=== PATIENT | female | born 1990 ===

== ENCOUNTER 2016-09-14 10:55 | Emergency (ER) | payer SELFPAY ==
[2016-09-14 10:58] VITALS: BMI 31.6
[2016-09-14 11:01] VITALS: RESP 18
[2016-09-14 11:47] LABS: RBC URINE 1 /hpf (0-3); URINE BILIRUBIN NEGATIVE (NEGATIVE); URINE BLOOD NEGATIVE (NEGATIVE); URINE COLOR Yellow (YELLOW); URINE GLUCOSE (UA) NORMAL (Normal); URINE KETONE NEGATIVE (NEGATIVE); URINE LEUKOCYTE ESTERASE 2+ Leu/uL (Negative); URINE PROTEIN NEGATIVE (NEGATIVE); URINE UROBILINOGEN NORMAL mg/dL (0.2-1.0)
[2016-09-14 11:57] LABS: WBC URINE 3 /hpf (0-5)
--- NOTE | 2016-09-14 12:06 | C.PDOC ---
History Of Present Illness 26 yo female w/PMHx of asthma come in for evaluation of intermittent frontal headache associated with nasal congestion, " seasonal allergy". 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 Otherwise, pt denies high fever, chills, severe headache, dizziness, N/V, visual changes, focal deficits, neck pain, rash, drooling, dysphagia, dyspnea, CP, SOB, diaphoresis, wheezing, abd. pain, N/V/D, UTI sx. Denies hx of anemia or heavy vaginal bleeding. Ambulate to ED for evaluation, not in any apparent distress. Time Seen by Provider: 09/14/16 11:01 Chief Complaint (Nursing): Headache History Per: Patient History/Exam Limitations: no limitations Onset/Duration Of Symptoms: Intermittent Episodes Current Symptoms Are (Timing): Still Present Past Medical History Reviewed: Historical Data, Nursing Documentation, Vital Signs Vital Signs: Last Vital Signs Temp 98.9 F 09/14/16 11:00 Pulse 75 09/14/16 11:00 Resp 18 09/14/16 11:00 BP 96/63 L 09/14/16 11:00 Pulse Ox 98 09/14/16 12:14 - Medical History PMH: Asthma Surgical History: Tonsillectomy - [facility] Procedures INSERT GASTRIC TUBE NEC (10/11/13) Family History: States: No Known Family Hx - Social History Hx Tobacco Use: No Hx Alcohol Use: No Hx Substance Use: No - Immunization History Hx Tetanus Toxoid Vaccination: No Hx Influenza Vaccination: No Hx Pneumococcal Vaccination: No Review Of Systems Except As Marked, All Systems Reviewed And Found Negative. Constitutional: Negative for: Fever, Chills Eyes: Negative for: Vision Change Cardiovascular: Negative for: Chest Pain Respiratory: Negative for: Shortness of Breath, Wheezing Gastrointestinal: Negative for: Nausea, Vomiting, Abdominal Pain, Diarrhea Musculoskeletal: Negative for: Neck Pain Skin: Negative for: Rash Neurological: Positive for: Headache (Frontal headache). Negative for: Dizziness Physical Exam - Physical Exam Appears: Well, Non-toxic, No Acute Distress Skin: Normal Color, Warm, Dry, No Rash Head: Atraumatic, Normacephalic Eye(s): bilateral: Normal Inspection, PERRL, EOMI Ear(s): Bilateral: Normal Nose: Discharge (B/L nasal congestion), Other (mild parafrontal sinuses tenderness, no edema, no erythema.) Oral Mucosa: Moist, No Drooling, No Trismus Tongue: Normal Appearing Lips: Normal Appearing Throat: Normal, No Erythema, No Exudate, No Drooling Neck: Normal, Normal ROM, Supple Cardiovascular: Rhythm Regular Respiratory: Normal Breath Sounds, No Stridor, No Wheezing Gastrointestinal/Abdominal: Normal Exam, Soft, No Tenderness Back: Normal Inspection Extremity: Normal ROM, No Pedal Edema Neurological/Psych: Oriented x3, Normal Speech ED Course And Treatment O2 Sat by Pulse Oximetry: 98 Pulse Ox Interpretation: Normal Progress Note: On re-evaluation, pt is afebrile, hemodynamicaly stable. Non- toxic. Tolerate PO well in ED. PulseOx 98% RA. ENT: exam c/w mild frontal sinusitis. NO edema, no erythema. Eyes: normal exam. Neck: (-) meningeal sign. Lungs: CTA B/L, BS equal B/L. ABd: benign. Neurologicaly intact. Pt advised and ref. to F/u with PMD, Neuro and ENT in 2-3 days for re-eavl. return if any new changes. Medical Decision Making Medical Decision Making: PLAN: * HCG Urine * Urinalysis * Benadryl PO * Prednisone PO Disposition Counseled Patient/Family Regarding: Studies Performed, Diagnosis, Need For Followup, Rx Given - Disposition Referrals: Clinic,Med Surg [Primary Care Provider] - [facility] [Outside] Al Christiansen MD [Staff Provider] - Disposition Time: 11:55 Condition: STABLE Additional Instructions: Encourage fluids Consider B12 vitamins supplement Take medication as prescribed Follow up with PMD, ENT and Neurology in 2-3 days for re-evaluation. Return to ED if any worsening or new changes. Prescriptions: Amoxicillin/Clavulanate [Augmentin 875 MG-125 MG] 1 tab PO BID #14 tab Loratadine [Claritin] 10 mg PO DAILY #20 tab Prednisone [Deltasone] 20 mg PO DAILY #3 tablet Instructions: Rhinosinusitis (ED) Forms: Work Excuse - Clinical Impression Clinical Impression: Sinusitis - PA / [employer] / Resident Statement MD/DO has reviewed & agrees with the documentation as recorded. - Scribe Statement The provider has reviewed the documentation as recorded by the Darielaibmame Arboleda All medical record entries made by the Scribe were at my direction and personally dictated by me. I have reviewed the chart and agree that the record accurately reflects my personal performance of the history, physical exam, medical decision making, and the department course for this patient. I have also personally directed, reviewed, and agree with the discharge instructions and disposition.
[2016-09-14 12:32] VITALS: BP 102/62; PULSE 71; TEMP 98.2; O2SAT 99
== END 2016-09-14 12:32 | disposition home or self-care (01) ==
LOC: C.ER 10:55 → SUPCPDRO 10:55 → C.ER 12:32
DX: J32.1 Chronic frontal sinusitis (principal)

== ENCOUNTER 2017-08-30 18:32 | Emergency (ER) | payer SELFPAY ==
[2017-08-30 18:32] VITALS: BMI 31.6
[2017-08-30 18:46] VITALS: BP 112/78; PULSE 83; TEMP 98.1; O2SAT 98
--- NOTE | 2017-08-30 19:28 | C.PDOC ---
History Of Present Illness 27-year-old female, presents to the emergency department with complaints of left sided neck swelling that started today, associated with pain when swallowing and left ear pain. She notes headache this morning which she took Excederin for and has now resolved. Denies fever, visual change, nausea/vomiting , trauma, change in sensation, or any associated symptoms. Time Seen by Provider: 08/30/17 19:11 Chief Complaint (Nursing): Headache History Per: Patient History/Exam Limitations: no limitations Onset/Duration Of Symptoms: Days Current Symptoms Are (Timing): Still Present Severity: Moderate Past Medical History Reviewed: Historical Data, Nursing Documentation, Vital Signs Vital Signs: Last Vital Signs Temp 98.1 F 08/30/17 18:43 Pulse 83 08/30/17 18:43 Resp 20 08/30/17 20:07 BP 112/78 08/30/17 18:43 Pulse Ox 98 08/30/17 21:31 - Medical History PMH: Asthma Surgical History: Tonsillectomy - [facility] Procedures INSERT GASTRIC TUBE NEC (10/11/13) Family History: States: No Known Family Hx - Social History Hx Tobacco Use: No Hx Alcohol Use: No Hx Substance Use: No - Immunization History Hx Tetanus Toxoid Vaccination: No Hx Influenza Vaccination: No Hx Pneumococcal Vaccination: No Review Of Systems Constitutional: Negative for: Fever, Chills Eyes: Negative for: Vision Change Respiratory: Negative for: Cough Gastrointestinal: Negative for: Vomiting Genitourinary: Negative for: Incontinence Musculoskeletal: Positive for: Neck Pain. Negative for: Back Pain Physical Exam - Physical Exam Appears: Non-toxic, No Acute Distress Skin: Normal Color, Warm, Dry, No Rash Head: Atraumatic, Normacephalic Eye(s): bilateral: Normal Inspection, PERRL, EOMI Ear(s): Left: TM Erythema, Right: Normal Nose: Normal Oral Mucosa: Moist Throat: Normal, No Erythema, No Exudate Neck: Normal ROM, Supple, Other ( (-)meningeal signs) Lymphatic: Adenopathy ((+)left cervical lymphadenopathy) Chest: Symmetrical Cardiovascular: Rhythm Regular Respiratory: Normal Breath Sounds, No Accessory Muscle Use Extremity: Normal ROM Extremity: Bilateral: Atraumatic Neurological/Psych: Oriented x3, Normal Speech Gait: Steady ED Course And Treatment O2 Sat by Pulse Oximetry: 98 (RA) Pulse Ox Interpretation: Normal Progress Note: Discussed signs and symptoms of concern including persistent lymphadenopathy. Instructed to follow up with PMD in 1-2 days or return to ER if symtpoms persist or worsen. Disposition - Disposition Referrals: Hima Lo MD [Staff Provider] - Disposition: HOME/ ROUTINE Disposition Time: 18:30 Condition: STABLE Additional Instructions: You were diagnosed with lymphadenopathy, swelling of your lymph nodes. This occurs when you are fighting a bacterial or viral infection. You will be treated with motrin for any discomfort and an antibiotic. Please follow up with your PMD tomorrow or return to ER if symtpoms persist or worsen including if a fever starts, your headache returns, nausea , vomiting or visual changes. Also follow up with an eye doctor in 1-2 days. Prescriptions: Amoxicillin 875 mg PO BID #20 tablet Ibuprofen [Motrin] 600 mg PO Q6 PRN #20 tab PRN Reason: Pain, Mild (1-3) Instructions: Ear Infections (Otitis Media) (DC) Forms: [employer] ([place]rian) - Clinical Impression Clinical Impression: Lymphadenopathy, Otitis media - Scribe Statement The provider has reviewed the documentation as recorded by the Scribe (Aneta Pichardo) All medical record entries made by the Scribe were at my direction and personally dictated by me. I have reviewed the chart and agree that the record accurately reflects my personal performance of the history, physical exam, medical decision making, and the department course for this patient. I have also personally directed, reviewed, and agree with the discharge instructions and disposition.
[2017-08-30 20:08] VITALS: RESP 20
== END 2017-08-30 20:07 | disposition home or self-care (01) ==
LOC: C.ER 18:32
DX: R59.1 Generalized enlarged lymph nodes (principal); H66.92 Otitis media, unspecified, left ear